=== PATIENT | female | born 1995 | race Two or more races ===

== ENCOUNTER 2024-08-07 01:54 | Emergency (ER) | payer MEDICAID ==
[~2024-08-07] VITALS: Ht 157.5 cm; Wt 75.7 kg
[2024-08-07 02:05] VITALS: BP 136/83; PULSE 93; RESP 18; TEMP 98.1; O2SAT 97
== END 2024-08-08 02:54 | disposition left against medical advice (07) ==
LOC: ER 01:54
DX: R10.2 Pelvic and perineal pain (principal); Z53.21 Procedure and treatment not carried out due to patient leaving prior to being seen by health care provider